=== PATIENT | female | born 1985 ===

== ENCOUNTER 2017-05-23 09:36 | Day surgery (SDC) | payer OTHER ==
[~2017-05-23] VITALS: Ht 165.1 cm; Wt 62.7 kg
[2017-05-23 10:13] VITALS: BP 116/84; PULSE 68; TEMP 97.5
[2017-05-23 12:09] VITALS: BP 113/83; PULSE 55; TEMP 97
[2017-05-23 12:15] VITALS: BP 110/85; PULSE 69
[2017-05-23 12:30] VITALS: BP 107/70; PULSE 63
[2017-05-23 12:45] VITALS: BP 91/63; PULSE 63
[2017-05-23 14:38] VITALS: BP 99/68; PULSE 57
== END 2017-05-23 13:00 | disposition home or self-care (01) ==
LOC: SDCO 09:36
DX: K21.9 Gastro-esophageal reflux disease without esophagitis (principal); K59.00 Constipation, unspecified; K58.9 Irritable bowel syndrome, unspecified; F41.9 Anxiety disorder, unspecified; Z83.79 Family history of other diseases of the digestive system
CPT/HCPCS: J2250; J2405; J3010; J7030